=== PATIENT | male | born 1970 | race Caucasian/White ===

== ENCOUNTER → 2018-07-08 15:03 | Outpatient (CLI) | payer OTHER, SELFPAY ==
[2018-07-08 16:18] LABS: Add Manual Diff / Slide Review NO; Basophils Percent Auto 0.4 % (0-2); Eosinophils Percent Auto 1.3 % (2-4); Hematocrit 44.1 % (41-53); Hemoglobin 15.1 g/dL (13.5-17.5); Lymphocytes Percent Auto 24.5 % (25-40); Mean Corpuscular HGB Conc 34.3 % (30-36); Mean Corpuscular Hemoglobin 27.5 PG (26-34); Mean Corpuscular Volume 80.2 fL (80-100); Monocytes Percent Auto 6.5 % (3-14); Neutrophils Absolute Auto 4900 /uL (3000-5900); Neutrophils Percent Auto 67.3 % (50-75); Platelet Count 207 X10^3/uL (150-400); Red Cell Distribution Width 13.5 % (11.6-14.8); White Blood Cell Count 7.3 X10^3/uL (4.5-11.0)
[2018-07-08 16:35] LABS: Alanine Aminotransferase 32 IU/L (21-72); Albumin 4.5 g/dL (3.5-5.0); Albumin Globulin Ratio 1.4 (1.0-2.8); Alkaline Phosphatase 68 U/L (38-126); Aspartate Aminotransferase 19 IU/L (17-59); Bilirubin Total 0.6 mg/dL (0.2-1.3); Blood Urea Nitrogen 16 mg/dL (9-20); Calcium 9.2 mg/dL (8.4-10.2); Carbon Dioxide 23 mmol/L (22-32); Chloride 106 mmol/L (98-107); Cholesterol 221 mg/dL (140-199); Estimated Glomerular Filt Rate > 60.0 mL/min (>60); Globulin 3.2 g/dL (1.7-4.1); Glucose 102 mg/dL (70-100); HDL Cholesterol 35 mg/dL (40-60); HEMOLYSIS < 15 (0-50); LDL Cholesterol Calculated 135 mg/dL (<100); Sodium 143 mmol/L (137-145); Total Protein 7.7 g/dL (6.3-8.2); Triglycerides 256 mg/dL (35-150)
[2018-07-08 16:51] LABS: Free T4, Direct Thyroxine 1.07 ng/dL (0.78-2.19)
[2018-07-08 17:05] LABS: Thyroid Stimulating Hormone 2.01 uIU/mL (0.47-4.68)
== END ==
PROVIDERS: Family Provider Internal Medicine; PCP Internal Medicine; Visit Provider Internal Medicine
DX: E78.2 Mixed hyperlipidemia (principal); I10 Essential (primary) hypertension
CPT/HCPCS: 36415; 80053; 80061; 84439; 84443; 85025

== ENCOUNTER 2019-10-07 22:58 | Emergency (ER) | payer OTHER, SELFPAY ==
[2019-10-07 23:06] VITALS: BP 198/106; PULSE 75; RESP 19; TEMP 36.6; O2SAT 97; BMI 38.2
[2019-10-07] MEDS: SODIUM CHLORIDE 0.9% 1,000 ML 1000 ML IV (23:39)
[2019-10-07] MEDS: KETOROLAC 60 MG/2 ML VIAL 15 MG IV (23:40)
[2019-10-07 23:51] LABS: Add Manual Diff / Slide Review NO; Basophils Absolute Auto 0 /uL (0-100); Basophils Percent Auto 0.5 % (0-2); Eosinophils Absolute Auto 200 /uL (0-450); Eosinophils Percent Auto 2.3 % (2-4); Hematocrit 36.4 % (41-53); Hemoglobin 12.6 g/dL (13.5-17.5); Lymphocytes Absolute Auto 1100 /uL (1100-4500); Lymphocytes Percent Auto 11.8 % (25-40); Mean Corpuscular HGB Conc 34.5 % (30-36); Mean Corpuscular Hemoglobin 27.6 PG (26-34); Monocytes Absolute Auto 800 /uL (0-900); Monocytes Percent Auto 8.6 % (3-14); Neutrophils Absolute Auto 7500 /uL (1500-7000); Neutrophils Percent Auto 76.8 % (50-75); Platelet Count 212 X10^3/uL (150-400); Red Blood Cell Count 4.56 X10^6/uL (4.5-5.9); Red Cell Distribution Width 13.2 % (11.6-14.8); White Blood Cell Count 9.7 X10^3/uL (4.5-11.0)
[2019-10-07 23:58] LABS: BUN Creatinine Ratio 10.8 (6-22); Blood Urea Nitrogen 14 mg/dL (9-20); Calcium 8.5 mg/dL (8.4-10.2); Carbon Dioxide 24 mmol/L (22-32); Chloride 104 mmol/L (98-107); Estimated Glomerular Filt Rate 59.2 mL/min (>60); Glucose 163 mg/dL (70-100); HEMOLYSIS < 15 (0-50); Potassium 3.2 mmol/L (3.4-5.1); Sodium 137 mmol/L (137-145)
--- NOTE | 2019-10-08 00:35 | ED.BACK ---
HPI - Back Pain/Injury General Chief Complaint: Back Pain/Injury Stated Complaint: Possible Kidney Stones Time Seen by Provider: 10/07/19 23:00 Source: patient Mode of arrival: Ambulatory Limitations: no limitations History of Present Illness HPI Narrative: 48-year-old male nonsmoker with history of hypertension and kidney stones presents with a chief complaint of a sudden onset and severe right flank pain in the absence of injury. He states that starts in his right back and has radiated around into his right groin. He denies any provocation or palliation. He denies dysuria, frequency or urgency. He states it feels quite similar to prior episode of kidney stones. He denies any fever or chills. MD Complaint: back pain Onset (ago): hour(s) Duration: intermittent Similar Symptoms Previously: Yes Location: right flank Severity: moderate Quality: sharp Radiation: groin Relieving factors: none Exacerbating factors: none Associated symptoms: denies other symptoms Related Data Previous Rx's Medication Instructions Recorded dextroamphetamine 15 mg tablet 15 mg PO BID #60 tab 04/01/19 lisinopril 20 mg tablet 20 mg PO DAILY #90 tab 04/01/19 hydrocodone-acetaminophen 1 tab PO Q4-6H PRN #10 tab 10/08/19 ketorolac 10 mg PO Q6H PRN #14 tab 10/08/19 tamsulosin [Flomax] 0.4 mg PO DAILY #10 cap 10/08/19 Allergies Allergy/AdvReac Type Severity Reaction Status Date / Time No Known Drug Allergies Allergy Verified 05/30/19 11:49 Review of Systems Constitutional Constitutional: Denies chills, Denies fatigue, Denies fever(s), Denies frequent falls, Denies lethargy and Denies weakness Eyes Eyes: Denies change in vision, Denies eye discharge, Denies irritation and Denies loss of vision ENT Ears, Nose, Mouth, and Throat: Denies change in voice, Denies dizziness, Denies neck pain, Denies sore throat and Denies throat swelling Cardiovascular Cardiovascular: Denies chest pain, Denies irregular heart rhythm, Denies lightheadedness, Denies palpitations, Denies dyspnea, Denies dyspnea on exertion and Denies orthopnea Respiratory Respiratory: Denies cough, Denies dyspnea, Denies dyspnea on exertion and Denies wheezing Gastrointestinal Gastrointestinal: Denies abdominal pain, Denies change in bowel habits, Denies diarrhea, Denies nausea and Denies vomiting Genitourinary Genitourinary: Denies hematuria, Reports flank pain, Denies urinary incontinence and Denies urinary urgency Musculoskeletal Musculoskeletal: Denies back pain, Denies muscle weakness, Denies neck pain, Denies numbness and Denies tingling Integumentary/Breasts Skin/Breast: Denies pruritus, Denies erythema, Denies rash and Denies wounds Neurologic Neurologic: Denies behavioral changes, Denies confusion, Denies dizziness, Denies frequent falls, Denies loss of vision, Denies numbness, Denies tingling and Denies weakness Psychiatric Psychiatric: Denies anxiety, Denies behavioral changes, Denies confusion, Denies depression, Denies homicidal ideation and Denies suicidal ideation Endocrine Endocrine: Denies fatigue, Denies flushing and Denies palpitations Hematologic/Lymphatic Hematologic/Lymphatic: Denies easy bruising Allergic/Immunologic Allergic/Immunologic: Denies urticaria, Denies throat swelling and Denies wheezing Patient History Medical History Attention deficit disorder of adult 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 Obese patient, obviously uncomfortable in laying on his side HEAD: Atraumatic. Normocephalic. EYES: Pupils equal round and reactive. Extraocular motions intact. No scleral icterus. No injection or drainage. ENT: Nose without bleeding, purulent drainage. Throat without erythema, tonsillar hypertrophy or exudate. Airway patent. NECK: Trachea midline. Non tender CARDIOVASCULAR: Regular rate and rhythm without murmurs, gallops, or rubs. RESPIRATORY: Clear to auscultation. Breath sounds equal bilaterally. No wheezes, rales, or rhonchi. GASTROINTESTINAL: Abdomen soft, non-tender, nondistended. EXTREMITIES: No edema or joint tenderness. BACK: Nontender without deformity or crepitance. No flank tenderness. NEURO: AOx3. SKIN: No rash or erythema of visible areas Initial Vital Signs Initial Vital Signs: Vital Signs Temperature 97.8 F 10/07/19 23:06 Pulse Rate 75 10/07/19 23:06 Respiratory Rate 19 10/07/19 23:06 Blood Pressure 198/106 H 10/07/19 23:06 Pulse Oximetry 97 10/07/19 23:06 Course Orders Ordered: ED Orders 10/07/19 23:32 Basic Metabolic Panel Stat Complete Blood Count AUTO DIFF Stat Discontinued Medications Hydrocodone Bitart/Acetaminophen (Vicodin 5/325 Prepack) 1 bottle [facility] SEEINSTR ONE Stop: 10/08/19 00:33 Last Admin: 10/08/19 00:44 Dose: 1 bottle Documented by: DEBI Sodium Chloride (Normal Saline 0.9%) 1,000 mls @ 1,000 mls/hr IV BOLUS ONE Stop: 10/08/19 00:14 Last Infusion: 10/08/19 00:40 Dose: 1,000 mls/hr Documented by: Admin: 10/07/19 23:39 Dose: 1,000 mls/hr Documented by: ZAK Ketorolac Tromethamine (Toradol) 15 mg IV NOW ONE Stop: 10/07/19 23:16 Last Admin: 10/07/19 23:40 Dose: 15 mg Documented by: ZAK Ondansetron HCl (Zofran) 4 mg IV Q4HR PRN PRN Reason: Nausea And Vomiting Ondansetron HCl (Zofran Odt Prepack) 1 bottle [facility] SEEINSTR ONE Stop: 10/08/19 00:33 Last Admin: 10/08/19 00:44 Dose: 1 bottle Documented by: DEBI Vital Signs Vital signs: Vital Signs - 8 hr 10/07/19 23:06 10/08/19 00:40 Temperature 97.8 F Pulse Rate 75 69 Respiratory Rate 19 17 Blood Pressure 198/106 H 176/91 H Pulse Oximetry 97 97 MDM - Back Pain/Injury Lab Data Result diagrams: 10/07/19 23:32 10/07/19 23:32 Labs: Lab Results 10/07/19 10/07/19 Range/Units 23:32 23:32 WBC 9.7 (4.5-11.0) X10^3/uL RBC 4.56 (4.5-5.9) X10^6/uL Hgb 12.6 L (13.5-17.5) g/dL Hct 36.4 L (41-53) % MCV 80.0 (80-100) fL MCH 27.6 (26-34) PG MCHC 34.5 (30-36) % RDW 13.2 (11.6-14.8) % Plt Count 212 (150-400) X10^3/uL Neut % (Auto) 76.8 H (50-75) % Lymph % (Auto) 11.8 L (25-40) % [place] % (Auto) 8.6 (3-14) % Eos % (Auto) 2.3 (2-4) % Baso % (Auto) 0.5 (0-2) % Neut # (Auto) 7500 H (5435-4536) /uL Lymph # (Auto) 1100 (8558-3634) /uL [place] # (Auto) 800 (0-900) /uL Eos # (Auto) 200 (0-450) /uL Baso # (Auto) 0 (0-100) /uL Sodium 137 (137-145) mmol/L Potassium 3.2 L (3.4-5.1) mmol/L Chloride 104 (98-107) mmol/L Carbon Dioxide 24 (22-32) mmol/L BUN 14 (9-20) mg/dL Creatinine 1.30 H (0.66-1.25) mg/dL Estimated GFR 59.2 L (>60) mL/min BUN/Creatinine Ratio 10.8 (6-22) Glucose 163 H (70-100) mg/dL Calcium 8.5 (8.4-10.2) mg/dL Urine Dip Bedside Urine Glucose Negative Bedside Urine Bilirubin - Negative Bedside Urine Ketone - Negative Urine Specific [place] 1.015 Bedside Urine Occult Blood - Negative Bedside Urine pH 6.5 Bedside Urine Protein - Negative Bedside Urine Urobilinogen - Negative Bedside Urine Nitrite - Negative Bedside Urine Leukocytes - Negative Esterase MDM Narrative Medical decision making narrative: 48-year-old male shows tremendous improvement in symptoms after above-stated therapies. He has sudden onset flank pain with radiation into his groin without provocation or palliation. He states this is similar to prior kidney stones. His labs are very reassuring. We discussed the utility of additional imaging and agree to hold off for now. He has been given return precautions and understands discharge instructions. He has had questions answered to his apparent satisfaction Discharge Plan Departure Patient Disposition: Home Clinical Impression: Acute right flank pain Discharge Date/Time: 10/08/19 00:40 Instructions: DI for Kidney Stones Activity Restrictions/Additional Instructions: *You have been diagnosed with [acute right flank pain, likely kidney stone] *What to do: *Take medications as directed *Follow up with your primary care provider in 2-3 days, call for an appointment. Let them know you were seen in the Emergency Department and that we ask that you be seen in follow up *Return to ER if you should have any new, worsening or concerning symptoms Prescriptions: New hydrocodone-acetaminophen 5-325 mg tablet 1 tab PO Q4-6H PRN (Reason: pain) Qty: 10 RF: 0 ketorolac 10 mg tablet 10 mg PO Q6H PRN (Reason: pain) Qty: 14 RF: 0 tamsulosin [Flomax] 0.4 mg capsule 0.4 mg PO DAILY Qty: 10 RF: 0 No Action lisinopril 20 mg tablet 20 mg PO DAILY Qty: 90 RF: 3 dextroamphetamine 15 mg tablet 15 mg PO BID Qty: 60 RF: 0 Referrals: Rich Guaman MD [Primary Care Provider] -
[2019-10-08 00:40] VITALS: BP 176/91; PULSE 69; RESP 17; O2SAT 97
[2019-10-08] MEDS: ONDANSETRON 4 MG ODT PREPACK 1 BOTTLE MISC (00:44)
[2019-10-08] MEDS: HYDROCODONE/ACET 5/325 PREPACK 1 BOTTLE MISC (00:44)
== END 2019-10-08 00:40 | disposition home or self-care (01) ==
PROVIDERS: Emergency Provider Emergency Medicine; Family Provider Internal Medicine; PCP Internal Medicine
DX: R10.9 Unspecified abdominal pain (principal); Z87.442 Personal history of urinary calculi
CPT/HCPCS: 36415; 80048; 81003; 85025; 96361; 96374; 99284; J1885

== ENCOUNTER → 2019-11-21 13:21 | Outpatient (CLI) | payer OTHER, SELFPAY ==
[2019-11-21 16:47] LABS: Influenza A - CEPHEID Flu A NEGATIVE (NEGATIVE); Influenza B - CEPHEID Flu B NEGATIVE (NEGATIVE)
[2019-11-23 05:38] LABS: COVID19 Sendout Not Detected (Not Detected)
== END ==
PROVIDERS: Family Provider Internal Medicine; PCP Internal Medicine; Visit Provider Family Medicine
DX: R05 Cough (principal)
CPT/HCPCS: 87502; 87635

== ENCOUNTER → 2020-07-05 14:19 | Outpatient (CLI) | payer OTHER, SELFPAY ==
[2020-07-05 15:39] LABS: COVID19 -Nasal RAPID Negative (Negative)
== END ==
PROVIDERS: Family Provider Internal Medicine; PCP Internal Medicine; Visit Provider Physician Assistant
DX: Z11.59 Encounter for screening for other viral diseases (principal)
CPT/HCPCS: 87635

== ENCOUNTER 2020-07-12 11:25 | Emergency (ER) | payer OTHER, SELFPAY ==
[2020-07-12] VITALS (11 sets, daily range): BP systolic 158; BP diastolic 98; PULSE 66–88; RESP 20–24; TEMP 35.8; O2SAT 92–97; BMI 38.9
--- NOTE | 2020-07-12 11:46 | DI.RAD.S_ITS ---
PROCEDURE: XR CHEST 2V INDICATIONS: COVID sx, short of breath, R crackles TECHNIQUE: 2 views of the chest were acquired. COMPARISON: None. FINDINGS: Surgical changes and devices: None. Lungs and pleura: Low lung volumes are noted. This causes a crowded appearance to the lung markings and limits evaluation. Perihilar infiltrates are seen. No pneumothorax or pleural effusions are seen. Mediastinum: Mediastinal contours are normal. Heart size is at the upper limits of normal. Bones and chest wall: No suspicious bony abnormalities. Soft tissues appear unremarkable. IMPRESSION: Low lung volumes with perihilar infiltrates. Pulmonary edema is suspected. Dictated by: Alverto Pascal M.D. on 07/12/2020 at 11:16 Approved by: Alverto Pascal M.D. on 07/12/2020 at 11:16
[2020-07-12 12:07] LABS: COVID19 -Nasal RAPID POSITIVE (Negative)
--- NOTE | 2020-07-12 12:21 | ED.SOB ---
HPI - SOB/Dyspnea General Chief Complaint: Shortness of Breath/Dyspnea Stated Complaint: difficulty breathing, thinks he has covid Time Seen by Provider: 07/12/20 12:07 Source: patient Mode of arrival: Ambulatory Limitations: no limitations History of Present Illness HPI Narrative: This is a 49-year-old male who comes emergency department with complaint of shortness of breath. He states that he has had 10 days of symptoms. His tested positive for coronavirus several days ago. Patient had some fevers initially none recently. He denies any chest pain or pressure. No lightheadedness or passing out. Had some nausea intermittently. No vomiting he has had some loose stools but no constipation. No swelling in his extremities. He does have a history of hypertension he is not currently taking his medications. He also has a history of sleep apnea. Denies any tobacco, no alcohol or illicit. No known drug allergies. Him, his and 3 children all live home together. Should have have been asymptomatic but his has had symptoms. Patient came in today because he has had increasing shortness of breath. Does not feel like he has been tight or wheezy but his does have an inhaler that she has been letting him use and he does find helpful. Related Data Previous Rx's Medication Instructions Recorded lisinopril 20 mg tablet 20 mg PO DAILY #90 tab 04/01/19 dextroamphetamine 15 mg tablet 15 mg PO BID #60 tab 10/20/19 albuterol sulfate 4 inh INHALATION Q4-6H PRN #18 g 07/12/20 aspirin 325 mg PO DAILY #30 tab 07/12/20 Allergies Allergy/AdvReac Type Severity Reaction Status Date / Time No Known Drug Allergies Allergy Verified 10/20/19 09:39 Review of Systems Review of Systems ROS Unobtainable: All systems reviewed & are unremarkable except as noted in HPI and below Patient History Medical History (Updated 07/12/20 @ 12:55 by Willow West DO) Attention deficit disorder of adult with hyperactivity (05/31/15) Essential hypertension (05/31/15) Ocular migraine (04/08/15) Surgical History History of vasectomy (11/27/13) Social History Smoking Status: Never smoker Smoking Status: Never smoker alcohol intake frequency: a few times a week Substance Use Type: does not use Exam Narrative Exam Narrative: GENERAL: Alert and oriented x three, well-nourished male in mild distress HEENT: Head normocephalic, atraumatic, EOMI, pupils reactive, face symmetric, moist mucous membranes NECK: Supple, full range of motion CARDIOVASCULAR: Regular rate and rhythm without murmurs, rubs or gallops. RESPIRATORY: Breath sounds equal bilaterally, no wheezes rales or rhonchi. No tachypnea accessory muscle use. ABDOMEN: Soft, nontender. Normoactive bowel sounds all 4 quadrants. No guarding or rebound, rigidity, no mass : No CVA tenderness EXTREMITIES: Normal range of motion, no clubbing or edema. Neurovascularly intact NEUROLOGICAL: Cranial nerves II through XII grossly intact. Moving all extremities SKIN: Warm, dry, no petechiae, no rashes or lesions. Initial Vital Signs Initial Vital Signs: Vital Signs Pulse Rate 80 07/12/20 11:39 Pulse Oximetry 92 07/12/20 11:39 Course Orders Ordered: ED Orders 07/12/20 11:40 COVID19 Stat 07/12/20 11:46 Chest [XR chest 2V] Stat 07/12/20 12:56 Complete Blood Count AUTO DIFF Stat Comprehensive Metabolic Panel Stat D Dimer Stat Ferritin Stat Lactate (Lactic Acid) Stat Lactate Dehydrogenase Stat Troponin & CK Cardiac Panel Stat 07/12/20 14:23 CT angio chest PE protocol Stat Vital Signs Vital signs: Vital Signs - 8 hr 07/12/20 11:39 07/12/20 11:44 07/12/20 11:45 Temperature 96.5 F L Pulse Rate 80 77 78 Respiratory Rate 24 Blood Pressure 158/98 H Pulse Oximetry 92 93 92 07/12/20 12:00 07/12/20 12:15 07/12/20 12:30 Temperature Pulse Rate 76 71 70 Respiratory Rate Blood Pressure Pulse Oximetry 95 94 94 07/12/20 12:47 07/12/20 13:00 07/12/20 13:30 Temperature Pulse Rate 71 71 69 Respiratory Rate Blood Pressure Pulse Oximetry 95 94 95 07/12/20 14:00 07/12/20 15:48 Temperature Pulse Rate 66 88 Respiratory Rate 20 Blood Pressure Pulse Oximetry 96 97 MDM - SOB/Dyspnea Lab Data Attestation: I reviewed the patient's lab results. Result diagrams: 07/12/20 12:56 07/12/20 12:56 Labs: Lab Results 07/12/20 07/12/20 07/12/20 Range/Units 11:40 12:56 12:56 WBC 3.8 L (4.5-11.0) X10^3/uL RBC 5.00 (4.5-5.9) X10^6/uL Hgb 14.0 (13.5-17.5) g/dL Hct 40.3 L (41-53) % MCV 80.5 (80-100) fL MCH 28.0 (26-34) PG MCHC 34.8 (30-36) % RDW 13.3 (11.6-14.8) % Plt Count 190 (150-400) X10^3/uL Neut % (Auto) 65.0 (50-75) % Lymph % (Auto) 23.3 L (25-40) % [place] % (Auto) 10.2 (3-14) % Eos % (Auto) 1.1 L (2-4) % Baso % (Auto) 0.4 (0-2) % Neut # (Auto) 2500 (2871-3976) /uL Lymph # (Auto) 900 L (2971-3100) /uL [place] # (Auto) 400 (0-900) /uL Eos # (Auto) 0 (0-450) /uL Baso # (Auto) 0 (0-100) /uL D-Dimer 275 H (<230) ng/mL Sodium (137-145) mmol/L Potassium (3.4-5.1) mmol/L Chloride (98-107) mmol/L Carbon Dioxide (22-32) mmol/L BUN (9-20) mg/dL Creatinine (0.66-1.25) mg/dL Estimated GFR (>60) mL/min BUN/Creatinine Ratio (6-22) Glucose (70-100) mg/dL Lactate (0.7-2.1) mmol/L Calcium (8.4-10.2) mg/dL Ferritin (18-464) ng/mL Total Bilirubin (0.2-1.3) mg/dL AST (17-59) IU/L ALT (<50) IU/L Alkaline Phosphatase (38-126) U/L Lactate Dehydrogenase (313-618) U/L Total Creatine Kinase (55-170) U/L CK-MB (CK-2) CK-MB (CK-2) Rel Index Troponin I (0.01-0.034) ng/mL Total Protein (6.3-8.2) g/dL Albumin (3.5-5.0) g/dL Globulin (1.7-4.1) g/dL Albumin/Globulin Ratio (1.0-2.8) COVID-19 PCR Positive H (Negative) 07/12/20 07/12/20 Range/Units 12:56 12:56 WBC (4.5-11.0) X10^3/uL RBC (4.5-5.9) X10^6/uL Hgb (13.5-17.5) g/dL Hct (41-53) % MCV (80-100) fL MCH (26-34) PG MCHC (30-36) % RDW (11.6-14.8) % Plt Count (150-400) X10^3/uL Neut % (Auto) (50-75) % Lymph % (Auto) (25-40) % [place] % (Auto) (3-14) % Eos % (Auto) (2-4) % Baso % (Auto) (0-2) % Neut # (Auto) (5061-8564) /uL Lymph # (Auto) (7003-3215) /uL [place] # (Auto) (0-900) /uL Eos # (Auto) (0-450) /uL Baso # (Auto) (0-100) /uL D-Dimer (<230) ng/mL Sodium 133 L (137-145) mmol/L Potassium 3.6 (3.4-5.1) mmol/L Chloride 99 (98-107) mmol/L Carbon Dioxide 26 (22-32) mmol/L BUN 10 (9-20) mg/dL Creatinine 0.67 (0.66-1.25) mg/dL Estimated GFR > 60.0 (>60) mL/min BUN/Creatinine Ratio 14.9 (6-22) Glucose 257 H (70-100) mg/dL Lactate 1.2 (0.7-2.1) mmol/L Calcium 8.5 (8.4-10.2) mg/dL Ferritin 732 H (18-464) ng/mL Total Bilirubin 0.6 (0.2-1.3) mg/dL AST 53 (17-59) IU/L ALT 50 H (<50) IU/L Alkaline Phosphatase 122 (38-126) U/L Lactate Dehydrogenase 672 H (313-618) U/L Total Creatine Kinase 41 L (55-170) U/L CK-MB (CK-2) TNP CK-MB (CK-2) Rel Index TNP Troponin I < 0.012 (0.01-0.034) ng/mL Total Protein 7.6 (6.3-8.2) g/dL Albumin 3.8 (3.5-5.0) g/dL Globulin 3.8 (1.7-4.1) g/dL Albumin/Globulin Ratio 1.0 (1.0-2.8) COVID-19 PCR (Negative) Imaging Data Chest x-ray: Radiologist's Impression: [address] [id number] ReportSigned Patient: Kenton Hammond R#: [id number]: 1970Acct:[id number]/Sex: 49 / MDate of Service: 07/12/20Loc: EDAccession Number: [id number] Procedure: XR chest 2V Ordering Provider: Willow West D.O. PROCEDURE: XR CHEST 2V INDICATIONS: COVID sx, short of breath, R crackles TECHNIQUE: 2 views of the chest were acquired. COMPARISON: None. FINDINGS: Surgical changes and devices: None. Lungs and pleura: Low lung volumes are noted. This causes a crowded appearance to the lung markings and limits evaluation. Perihilar infiltrates are seen. No pneumothorax or pleural effusions are seen. Mediastinum: Mediastinal contours are normal. Heart size is at the upper limits of normal. Bones and chest wall: No suspicious bony abnormalities. Soft tissues appear unremarkable. IMPRESSION: Low lung volumes with perihilar infiltrates. Pulmonary edema is suspected. Dictated by: Alverto Pascal M.D. on 07/12/2020 at 11:16 Approved by: Alverto Pascal M.D. on 07/12/2020 at 11:16 CT scan - chest: Radiologist's Impression: [address] [id number] Scan ReportSigned Patient: Kenton Hammond JMR#: [id number]: 1970Acct:[id number]/Sex: 49 / MDate of Service: 07/12/20Loc: EDAccession Number: [id number] Procedure: CT angio chest PE protocol Ordering Provider: Willow West D.O. PROCEDURE: CT ANGIO CHEST PE PROTOCOL INDICATIONS: covid+, short of breath, elevated dimer TECHNIQUE: After the administration of intravenous contrast, 2 mm thick sections acquired from the pulmonary apices to the posterior costophrenic angles. 3-dimensional maximum intensity projection (MIP) coronal and sagittal reformats were then acquired through the thorax. For radiation dose reduction, the following was used: automated exposure control, adjustment of mA and/or kV according to patient size. COMPARISON: [facility], CR, XR CHEST 2V, 07/12/2020, 11:52. FINDINGS: Image quality: Excellent. Pulmonary arteries: Pulmonary arteries are normal in size, and demonstrate no intraluminal filling defects to suggest central pulmonary embolism. Lungs and pleura: Bilateral interstitial infiltrates are seen, which are more prominent at the lung bases than the lung apices. No pleural effusions or pneumothorax. Central and peripheral airways are patent. Mediastinum: Heart size is normal, without pericardial effusion. A few mildly enlarged mediastinal lymph nodes are seen, including a right paraesophageal lymph node on series 4, image 79 measuring 11 x 15 mm. Thoracic aorta is normal in caliber and enhancement. Esophagus is normal in caliber, without hiatal hernia. Bones and chest wall: No suspicious bony lesions. Ribs and thoracic spine appear intact throughout. Thyroid gland demonstrates no significant abnormality . No axillary or supraclavicular adenopathy. Abdomen: Diffuse fatty liver infiltration is noted. Visualized upper abdominal solid organs appear normal in the early arterial phase of enhancement. IMPRESSION: Bilateral interstitial infiltrates are seen, which are consistent with the given clinical history of COVID pneumonia. Mildly enlarged mediastinal lymph nodes are seen, which are likely reactive. Negative for pulmonary embolism. Incidental note is made of: Fatty liver infiltration Dictated by: Alverto Pascal M.D. on 07/12/2020 at 13:49 Approved by: Alverto Pascal M.D. on 07/12/2020 at 13:53 [facility] Narrative Medical decision making narrative: 49-year-old male comes to the emergency department with complaint of shortness of breath. Patient has positive COVID. Initial chest x-ray does not show major changes. He does dip down to 90-93% O2 saturation, white count is 3.8 with a low lymphocyte count, sodium is 133, glucose is 257, ferritin 732, with an LDH of 672, troponins negative in D-dimer slightly elevated at 271. CT angiography was ordered as these patients are more likely to develop blood clots and is negative with COVID changes. Patient has been prescribed home O2 with RT and he has a pulse oximeter at home. Recommended asa 324mg daily and can continue albuterol and OTC medications if he finds these helpful. CT angiography shows COVID changes but no pulmonary emboli. Discussed with patient plan to recommend aspirin daily, he continue albuterol OTC medications. RT was able to get him set up with home O2. Patient does have a home pulse oximeter which he can use. Discussed return precautions. Patient has maintained oxygen level above 95% the majority of the time in the department. Discharge Plan Departure Patient Disposition: Home Clinical Impression: COVID-19 virus infection, Dyspnea Instructions: Coronavirus Disease 2019 Activity Restrictions/Additional Instructions: Follow up in the next week if you are not having any improvement or if you are feeling worse. Use home O2 as needed for supplemental oxygen, use if oxygen saturation is less than 94%. Continue to monitor your oxygen with your home pulse oximeter. If your oxygen is consistently below 89% return for re-evaluation. I would recommend taking an aspirin daily. You can continue other [id number] medications as prescribed. Prescription sent to [facility]. If you find albuterol helpful you may use 4-6 puffs every 6 hours as needed for shortness of breath or wheezing. Return for worsening symptoms increasing any dyspnea or shortness of breath, chest pain, lightheadedness or passing out, persistent vomiting, persistently low oxygen levels, altered mental status or other new or concerning symptoms. Prescriptions: New albuterol sulfate 90 mcg/actuation HFA aerosol inhaler 4 inh inhalation Q4-6H PRN (Reason: shortness of breath or wheezing) Qty: 18 RF: 0 aspirin 325 mg tablet 325 mg PO DAILY Qty: 30 RF: 0 No Action lisinopril 20 mg tablet 20 mg PO DAILY Qty: 90 RF: 3 dextroamphetamine 15 mg tablet 15 mg PO BID Qty: 60 RF: 0 Referrals: Rich Guaman MD [Primary Care Provider] -
[2020-07-12 13:08] LABS: Add Manual Diff / Slide Review NO; Basophils Absolute Auto 0 /uL (0-100); Basophils Percent Auto 0.4 % (0-2); Eosinophils Absolute Auto 0 /uL (0-450); Eosinophils Percent Auto 1.1 % (2-4); Hematocrit 40.3 % (41-53); Lymphocytes Absolute Auto 900 /uL (1100-4500); Lymphocytes Percent Auto 23.3 % (25-40); Mean Corpuscular HGB Conc 34.8 % (30-36); Mean Corpuscular Volume 80.5 fL (80-100); Monocytes Absolute Auto 400 /uL (0-900); Monocytes Percent Auto 10.2 % (3-14); Neutrophils Absolute Auto 2500 /uL (1500-7000); Platelet Count 190 X10^3/uL (150-400); Red Cell Distribution Width 13.3 % (11.6-14.8); White Blood Cell Count 3.8 X10^3/uL (4.5-11.0)
[2020-07-12 13:19] LABS: D Dimer 275 ng/mL (<230)
[2020-07-12 13:21] LABS: Alanine Aminotransferase 50 IU/L (<50); Albumin 3.8 g/dL (3.5-5.0); Alkaline Phosphatase 122 U/L (38-126); Aspartate Aminotransferase 53 IU/L (17-59); BUN Creatinine Ratio 14.9 (6-22); Bilirubin Total 0.6 mg/dL (0.2-1.3); Blood Urea Nitrogen 10 mg/dL (9-20); Calcium 8.5 mg/dL (8.4-10.2); Carbon Dioxide 26 mmol/L (22-32); Chloride 99 mmol/L (98-107); Creatine Kinase 41 U/L (55-170); Estimated Glomerular Filt Rate > 60.0 mL/min (>60); Globulin 3.8 g/dL (1.7-4.1); Glucose 257 mg/dL (70-100); HEMOLYSIS < 15 (0-50); Lactate Dehydrogenase 672 U/L (313-618); Potassium 3.6 mmol/L (3.4-5.1); Sodium 133 mmol/L (137-145); Total Protein 7.6 g/dL (6.3-8.2)
[2020-07-12 13:23] LABS: Lactate (Lactic Acid) 1.2 mmol/L (0.7-2.1)
[2020-07-12 13:33] LABS: Troponin I < 0.012 ng/mL (0.01-0.034)
[2020-07-12 13:56] LABS: Ferritin 732 ng/mL (18-464)
--- NOTE | 2020-07-12 14:23 | DI.CT.S_ITS ---
PROCEDURE: CT ANGIO CHEST PE PROTOCOL INDICATIONS: covid+, short of breath, elevated dimer TECHNIQUE: After the administration of intravenous contrast, 2 mm thick sections acquired from the pulmonary apices to the posterior costophrenic angles. 3-dimensional maximum intensity projection (MIP) coronal and sagittal reformats were then acquired through the thorax. For radiation dose reduction, the following was used: automated exposure control, adjustment of mA and/or kV according to patient size. COMPARISON: [facility], CR, XR CHEST 2V, 07/12/2020, 11:52. FINDINGS: Image quality: Excellent. Pulmonary arteries: Pulmonary arteries are normal in size, and demonstrate no intraluminal filling defects to suggest central pulmonary embolism. Lungs and pleura: Bilateral interstitial infiltrates are seen, which are more prominent at the lung bases than the lung apices. No pleural effusions or pneumothorax. Central and peripheral airways are patent. Mediastinum: Heart size is normal, without pericardial effusion. A few mildly enlarged mediastinal lymph nodes are seen, including a right paraesophageal lymph node on series 4, image 79 measuring 11 x 15 mm. Thoracic aorta is normal in caliber and enhancement. Esophagus is normal in caliber, without hiatal hernia. Bones and chest wall: No suspicious bony lesions. Ribs and thoracic spine appear intact throughout. Thyroid gland demonstrates no significant abnormality . No axillary or supraclavicular adenopathy. Abdomen: Diffuse fatty liver infiltration is noted. Visualized upper abdominal solid organs appear normal in the early arterial phase of enhancement. IMPRESSION: Bilateral interstitial infiltrates are seen, which are consistent with the given clinical history of COVID pneumonia. Mildly enlarged mediastinal lymph nodes are seen, which are likely reactive. Negative for pulmonary embolism. Incidental note is made of: Fatty liver infiltration Dictated by: Alverto Pascal M.D. on 07/12/2020 at 13:49 Approved by: Alverto Pascal M.D. on 07/12/2020 at 13:53
--- NOTE | 2020-07-12 14:43 | PC.NURSE ---
pt taken to and from CT chest. Pt tolerating 1L O2 NC well. Pt appears well. no SOB when lying still, RT in to consult about [employer] home O2 and discussed changing home CPAP tubing for when pt is no longer COVID+
== END 2020-07-12 15:48 | disposition home or self-care (01) ==
PROVIDERS: Emergency Provider Emergency Medicine; Family Provider Internal Medicine; PCP Internal Medicine
DX: U07.1 COVID-19 (principal); R06.00 Dyspnea, unspecified; R79.89 Other specified abnormal findings of blood chemistry
CPT/HCPCS: 36415; 71046; 71275; 80053; 82550; 82728; 83605; 83615; 84484; 85025; 85379; 87635; 99284; Q9967

== ENCOUNTER → 2021-04-18 08:23 | Outpatient (CLI) | payer OTHER, MEDICAID, SELFPAY ==
[2021-04-18 08:59] LABS: Hemoglobin A1C% w Est Avg Glu 11.3 % (4.0-6.0)
[2021-04-18 09:05] LABS: Alanine Aminotransferase 35 IU/L (<50); Albumin Globulin Ratio 1.3 (1.0-2.8); Alkaline Phosphatase 94 U/L (38-126); Aspartate Aminotransferase 30 IU/L (17-59); BUN Creatinine Ratio 18.3 (6-22); Bilirubin Total 0.7 mg/dL (0.2-1.3); Blood Urea Nitrogen 13 mg/dL (9-20); Calcium 8.8 mg/dL (8.4-10.2); Carbon Dioxide 24 mmol/L (22-32); Chloride 105 mmol/L (98-107); Cholesterol 223 mg/dL (140-199); Estimated Glomerular Filt Rate > 60.0 mL/min (>60); Globulin 3.2 g/dL (1.7-4.1); Glucose 314 mg/dL (70-100); HDL Cholesterol 29 mg/dL (40-60); HEMOLYSIS < 15 (0-50); LDL Cholesterol Calculated 122 mg/dL (<100); Potassium 4.2 mmol/L (3.4-5.1); Sodium 136 mmol/L (137-145); Total Protein 7.2 g/dL (6.3-8.2); Triglycerides 361 mg/dL (35-150)
== END ==
PROVIDERS: Family Provider Internal Medicine; PCP Internal Medicine; Referring Provider Internal Medicine; Visit Provider Internal Medicine
DX: F90.9 Attention-deficit hyperactivity disorder, unspecified type (principal); I10 Essential (primary) hypertension; R63.1 Polydipsia; R73.9 Hyperglycemia, unspecified
CPT/HCPCS: 36415; 80053; 80061; 83036

== ENCOUNTER → 2021-06-01 11:52 | Outpatient (CLI) | payer OTHER, MEDICAID, SELFPAY ==
--- NOTE | 2021-06-02 16:56 | DIAB.INIT ---
Addendum entered by Alexa Rosales 06/02/21 17:12: Date of visit: 06/01/21 Original Note: Initial Diabetes Education Assessment Name: Kenton Hammond Date: 06/02/21 Time: 1230-130p Dx: Type II Diabetes c Hyperglycemia Provider: Rowena Kenton presents today newly dx T2Dm c hgA1c of 11.3%. FH of DM with father. 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 Reports he has ADHD. States he feels carbohydrates exacerbate this diagnosis. Reports reducing carb intake and focusing on meat and vegetables. Limited fruit in his diet. Has 1/2-1c of milk or juice in evening. Endorses excessive urination, tingling in feet, and dry mouth for about 6 months prior to diagnosis. 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 Endorses great improvement with Metformin, but notices that when he eats high sugar foods/drinks, the symptoms return. Reports -25# of intentional weight loss over 6 months attributed to walking during frisbee golf. Anthropometrics: Ht: 6'1 Wt: 272# reported (preferred wt: 250#) Physical Activity: Frisbee golf q othe rday for 45-120 min. Reports discomfort in tennis shoes during activity, as they rub the side of his foot. He is wondering how this may impact foot health with DM. Self-Monitoring Blood Glucose: None currently. Plans to picking supervisor meter this week. Pertinent Labs: HgA1c 11.3% Cholesterol: 223 H LDL: 122 H HDL: 29 L T H Diabetes Medications: Metformin 500 mg BID Past Medical History: (Last Updated 04/21/21 @ 14:02 by Rich Guaman MD) Attention deficit disorder of adult with hyperactivity (~2007) COVID-19 virus infection Essential hypertension (05/31/15) History of vasectomy (11/27/13) Ocular migraine (04/08/15) Uncontrolled type 2 diabetes mellitus with hyperglycemia (~03/2021) Intervention: This participant was very receptive. Provided appropriate educational handouts. Discussed the following topics: Completed intake assessment. Discussed barriers to care. Pathophysiology of type 2 diabetes HgA1c, its correlation to blood glucose numbers, and rationale for goal Importance of self-monitoring, how often, and when to check. Suggested checking at different times to evaluate meals Plate Method, impact of macronutrients on blood sugar, meal timing, carbohydrate counting, pairing macronutrients and spreading out carbohydrates for better blood glucose management Discussed complex vs simple CHO and impact of BG Reviewed foot health and impact of hyperglycemia. Discussed having well-fitted shoes with proper socks to avoid foot injury/infection. General recommended servings for carbohydrates at meals and snacks Role of physical activity and following provider guidelines for safety Created SMART goals for patient self-care and success. Goals: sales superintendent meter and check BG: FBG and/or 1-2 hour pc and bring next visit Avoid juice Choose shoes that do not rub feet Follow-up: SILVERIO MATHEWS follow-up in 2-3 weeks Alexa Rosales RDN, BISI Certified Diabetes Care and Policy Specialist P: [phone] Thank you for this referral
== END ==
PROVIDERS: Family Provider Internal Medicine; PCP Internal Medicine; Referring Provider Internal Medicine; Visit Provider Internal Medicine
DX: E11.65 Type 2 diabetes mellitus with hyperglycemia (principal); Z71.3 Dietary counseling and surveillance; Z79.84 Long term (current) use of oral hypoglycemic drugs
CPT/HCPCS: G0108

== ENCOUNTER → 2021-06-17 07:43 | Outpatient (CLI) | payer OTHER, MEDICAID, SELFPAY ==
[2021-06-17 09:01] LABS: Hemoglobin A1C% w Est Avg Glu 8.3 % (4.0-6.0)
[2021-06-17 09:33] LABS: Alanine Aminotransferase 23 IU/L (<50); Albumin 4.1 g/dL (3.5-5.0); Albumin Globulin Ratio 1.3 (1.0-2.8); Alkaline Phosphatase 72 U/L (38-126); Aspartate Aminotransferase 19 IU/L (17-59); BUN Creatinine Ratio 15.7 (6-22); Bilirubin Total 0.6 mg/dL (0.2-1.3); Blood Urea Nitrogen 14 mg/dL (9-20); Calcium 9.3 mg/dL (8.4-10.2); Carbon Dioxide 25 mmol/L (22-32); Chloride 104 mmol/L (98-107); Estimated Glomerular Filt Rate > 60.0 mL/min (>60); Globulin 3.1 g/dL (1.7-4.1); Glucose 183 mg/dL (70-100); HEMOLYSIS < 15 (0-50); Potassium 4.6 mmol/L (3.4-5.1); Sodium 140 mmol/L (137-145); Total Protein 7.2 g/dL (6.3-8.2)
== END ==
PROVIDERS: Family Provider Internal Medicine; PCP Internal Medicine; Referring Provider Internal Medicine; Visit Provider Internal Medicine
DX: E11.65 Type 2 diabetes mellitus with hyperglycemia (principal); I10 Essential (primary) hypertension
CPT/HCPCS: 36415; 80053; 83036

== ENCOUNTER → 2021-06-22 11:53 | Outpatient (CLI) | payer OTHER, MEDICAID, SELFPAY ==
--- NOTE | 2021-06-22 17:30 | DIAB.FU ---
Follow-up Diabetes Education Assessment Name: Kenton Hammond Date: 06/22/21 Time: 12-1250p Dx: Type II Diabetes Provider: Rowena Cartwright Learning Style: Hands-on/doing Kenton presents for DM ed follow-up. Has increased physical activity and eating lower carb diet (though still room for improvement). BG continue above target, though last HgA1c has improved from 11.3% to 8.3%. Reports a weight loss of 8-10# (reported weight 265#). May benefit from increase in Metformin to 1000 mg BID. States he will discuss with provider. This RD/CDCES will contact provider office to discuss as well. After discussing with provider MA, pt often misses visits. Will plan to reinforce importance of regular PCP visits. Will also fax over chart note for provider review. Diet recall: 8a: nuts and lunch meat with cheese or nothing 12p: eats out 5-6p: nuts, fruit-- 5-7 grapes 7p: low carb soup or roast with veggies 9-10p lunch meat with 5 grapes or tries nothing Beverages: 40-60oz water, cut out coffee, sometimes milk or juice Endorses eating out 2-3 x per week: Sunday [employer] buffet, professional meeting, and Sunday fast food. Seems he is not ready to give up Sunday or eating out, but willing to take lunch on Fridays. Diet currently very low in fiber. Kenton states he has reduce juice and milk intake, though still having 4oz juice 3 x per week. Endorses decreased tingling in LE, though still some tingling at night which seems likely connected with elevations in BG. Has not changed shoes, despite having discomfort in current tennis shoes. has questions about increasing medications to avoid hyperglycemia and additional questions about glycemic index. Physical Activity: Frisbee golf q other day for 45-120 min. Added walking new dog 10-15 min BID. Self-Monitoring Blood Glucose: All readings above ADA targets. Week prior he had a 241 mg/dL after dinner and fastings ranging from 162-208 mg/dL. Only received 10 lancets, needing more. Date Pre Post Pre Post Pre Post HS 06/16 168 06/17 167 207 06/18 244 147 06/19 148 06/20 179 06/21 06/22 192 Diabetes Medications: Metformin 500 mg BID Pertinent Labs: HgA1c : 8.3% H 06/17/21 04/18/21 Cholesterol: 223 H T H LDL: 122 H HDL: 29 L Past Medical History: (Last Updated 04/21/21 @ 14:02 by Rich Guaman MD) Attention deficit disorder of adult with hyperactivity (~2007) COVID-19 virus infection Essential hypertension (05/31/15) History of vasectomy (11/27/13) Ocular migraine (04/08/15) Uncontrolled type 2 diabetes mellitus with hyperglycemia (~03/2021) Intervention: This participant was very receptive. Provided appropriate educational handouts. Discussed the following topics: Recent blood sugar results and trends Medication management Glycemic index vs glycemic load Choosing complex carbs to increase fiber and pairing with protein Review of general nutrition recommendations and current intake, fiber intake Physical activity plan and impact on blood sugars Prevention of complications: foot care, neuropathy Created SMART goals for patient self-care and success. Goals: dimension warehouse supervisor meter and check BG: FBG and/or 1-2 hour pc and bring next visit- met Avoid juice- in progress Choose shoes that do not rub feet - not met Ask pharmacy for more lancets- new Set 10p snack time with fruit and cheese paired- new Pack Sunday lunch to avoid eating out- new Aim for 60oz water daily- new Follow-up: SILVERIO MATHEWS follow-up in 2-3 weeks Alexa Rosales RDN, BISI Certified Diabetes Care and Boom Operator P: [phone] Thank you for this referral
== END ==
PROVIDERS: Family Provider Internal Medicine; PCP Internal Medicine; Referring Provider Internal Medicine; Visit Provider Internal Medicine
DX: E11.9 Type 2 diabetes mellitus without complications (principal); Z71.3 Dietary counseling and surveillance; Z79.84 Long term (current) use of oral hypoglycemic drugs
CPT/HCPCS: G0108

== ENCOUNTER → 2021-08-11 12:45 | Outpatient (CLI) | payer OTHER, MEDICAID, SELFPAY ==
--- NOTE | 2021-08-11 14:20 | DIAB.MNTFU ---
Follow-up Diabetes Medical Nutrition Therapy Assessment Name: Kenton Hammond Date: 08/11/21 Time: 1245-105p Dx: Type II Diabetes Kenton presents for a quick check-in today. He is 45 min late for his appt, but would like to have a quick check-in. Reports his weight loss has plateaued. Has increased milk and juice intake since last visit. States he thinks this may be because he is feeling good and wants to experiment with foods. States he has been eating more fast food this month than usual. No longer eating out with his friend on , but kcal and CHO intake seems to have increased with beverages and fast food. States he has increased water intake. Anthropometrics: Ht: 6'1 Wt: 260-262# reported Physical Activity: cont walking dog 10-15 min BID and frisbee golf 3 x per week Self-Monitoring Blood Glucose: running out of lancets and was told by pharmacy that he must get a new rx from PCP. Most readings continue above target. All FBG above goal. Pre lunch above goal. after dinner above goal per ADA guidelines (80-130 for FBG and <180 for pc). Fastings prior to the below readings: 162, 185, 175, 172, 171. Highest reading was after a pizza night 277 mg/dL on 07/02. Seems he may benefit from increase in Dm medication. Date Pre Post Pre Post Pre Post HS 07/31 191 08/01 162 08/02 188 08/06 136 08/07 166 08/08 216 196 08/10 199 Diabetes Medications: Metformin 500 mg BID Pertinent Labs: 8.3% H 05/2021 Past Medical History: (Last Updated 04/21/21 @ 14:02 by Rich Guaman MD) Attention deficit disorder of adult with hyperactivity (~2007) COVID-19 virus infection Essential hypertension (05/31/15) History of vasectomy (11/27/13) Ocular migraine (04/08/15) Uncontrolled type 2 diabetes mellitus with hyperglycemia (~03/2021) Nutrition Rx: Carbohydrates: Meal:45-60g Snack: 15-30g Nutrition Diagnosis: Excessive CHO intake r/t eating out and beverage choices aeb pt report and elevated BG Intervention: This participant was very receptive. Provided appropriate educational handouts. Discussed the following topics: Blood sugar review and trends. Impact of food intake on results. Eating out and impact on BG Physical activity plan and progress Created SMART goals for patient self-care and success. Goals: Ask pharmacy for lancets- met Set 10p balanced snack- met Pack sunday lunch- not met Aim for 60oz water- met Avoid juice, especially before bed - new Contact provider for lancet rx- new Purchase protein options at grocery store- new Follow-up: SILVERIO MATHEWS follow-up in 3-4 weeks Alexa Rosales RDN, BISI Certified Diabetes Care and Can Carrier P: [phone] Thank you for this referral
== END ==
PROVIDERS: Family Provider Internal Medicine; PCP Internal Medicine; Referring Provider Internal Medicine; Visit Provider Internal Medicine
DX: E11.9 Type 2 diabetes mellitus without complications (principal)
CPT/HCPCS: 97803

== ENCOUNTER → 2021-09-07 17:44 | Outpatient (CLI) | payer OTHER, MEDICAID, SELFPAY ==
--- NOTE | 2021-09-08 11:15 | DIAB.FU ---
Addendum entered by Alexa Rosales 09/08/21 11:23: This appt was virtual since Kenton was unsure if he was exposed to covid or not last weekend. Complication Risk Reduction: No dilated eye exam in two years. Did see eye doc last year though. No dental exam for 1 year or more. No flu vaccine and no plans to get. Does not check bottom of feet. Will review complication risk reduction next visit Original Note: Follow-up Diabetes Education Assessment Name: Kenton Hammond Date: 09/07/21 Time: Dx: Type II Diabetes This visit was completed virtually using [employer] platform. Kenton has consented to virtual visits and is aware of risks. BG continue above target. Has lost 5# and attributes this to exercise. It could also be associated with hyperglycemia. Kenton thinks the Metformin is working well for him. Reports reduced dry mouth, which he is happy about. Decrease in frequent urination. In terms of medication, he is interested in increasing Metformin HS. States he would like to try increasing HS dose to 1000 mg. Encouraged him to discuss further with provider. Still trying to avoid sodas and higher sugar foods. Trying to watch juice portions, keeping to ? c or less. Aiming for 60oz water per day. Has questions on what he can do when BG are elevaed. Cont to eat out twice per week. Physical Activity: Frisbee golfing almost q day and walking dog 15-30 min BID. No change since last visit. Sustaining [employer] program well. 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 Games are all day on Sundays twice per month. Self-Monitoring Blood Glucose: Reports FBG between 156-191 mg/dL and pc readings of 170-245 mg/dL. Most readings continue above ADA goal. May benefit from increase in Metformin. Provider wanted to give Kenton some time to continue working on lifestyle. Activity is going well. Nutrition is still a struggle for him it seems. Kenton is checking Bg fairly consistently but states he would like to check daily. This a personal goal for him to acquire more data. Diabetes Medications: Metformin 500 mg BID Pertinent Labs: 8.3% H 05/2021 Past Medical History: (Last Updated 04/21/21 @ 14:02 by Rich Guaman MD) Attention deficit disorder of adult with hyperactivity (~2007) COVID-19 virus infection Essential hypertension (05/31/15) History of vasectomy (11/27/13) Ocular migraine (04/08/15) Uncontrolled type 2 diabetes mellitus with hyperglycemia (~03/2021) Intervention: This participant was very receptive. Provided appropriate educational handouts. Discussed the following topics: Recent blood sugar results and trends Medication management Review of general nutrition recommendations and current intake Physical activity plan and impact on blood sugars Using activity and hydration to help with elevations Created SMART goals for patient self-care and success. Goals: Avoid juice, especially before bed - improved Contact provider for lancet rx- in progress Purchase protein options at grocery store- met Aim to check BG daily- new Discuss med plan with provider- new Follow-up: SILVERIO MATHEWS follow-up in 3-4 weeks Alexa Rosales RDN, BISI Certified Diabetes Care and Software Engineer Mobile P: [phone] Thank you for this referral
== END ==
PROVIDERS: Family Provider Internal Medicine; PCP Internal Medicine; Referring Provider Internal Medicine; Visit Provider Internal Medicine
DX: E11.9 Type 2 diabetes mellitus without complications (principal); Z79.84 Long term (current) use of oral hypoglycemic drugs
CPT/HCPCS: G0108

== ENCOUNTER → 2021-09-22 08:04 | Outpatient (CLI) | payer OTHER, MEDICAID, SELFPAY ==
[2021-09-22 09:34] LABS: Hemoglobin A1C% w Est Avg Glu 7.3 % (4.0-6.0)
[2021-09-22 09:39] LABS: BUN Creatinine Ratio 16.7 (6-22); Blood Urea Nitrogen 15 mg/dL (9-20); Calcium 8.8 mg/dL (8.4-10.2); Carbon Dioxide 22 mmol/L (22-32); Chloride 108 mmol/L (98-107); Cholesterol 196 mg/dL (140-199); Estimated Glomerular Filt Rate > 60.0 mL/min (>60); Glucose 153 mg/dL (70-100); HDL Cholesterol 35 mg/dL (40-60); HEMOLYSIS < 15 (0-50); LDL Cholesterol Calculated 128 mg/dL (<100); Potassium 4.4 mmol/L (3.4-5.1); Sodium 138 mmol/L (137-145); Triglycerides 165 mg/dL (35-150)
== END ==
PROVIDERS: Family Provider Internal Medicine; PCP Internal Medicine; Referring Provider Internal Medicine; Visit Provider Internal Medicine
DX: E11.65 Type 2 diabetes mellitus with hyperglycemia (principal); I10 Essential (primary) hypertension
CPT/HCPCS: 36415; 80048; 80061; 83036

== ENCOUNTER → 2021-12-19 11:15 | Outpatient (CLI) | payer OTHER, MEDICAID, SELFPAY ==
[2021-12-19 12:59] LABS: Hemoglobin A1C% w Est Avg Glu 7.5 % (4.0-6.0)
[2021-12-19 13:52] LABS: BUN Creatinine Ratio 20.2 (6-22); Blood Urea Nitrogen 20 mg/dL (9-20); Calcium 9.4 mg/dL (8.4-10.2); Carbon Dioxide 29 mmol/L (22-32); Chloride 102 mmol/L (98-107); Estimated Glomerular Filt Rate > 60 mL/min (>60); Glucose 137 mg/dL (70-100); HEMOLYSIS < 15 (0-50); Sodium 140 mmol/L (137-145)
== END ==
PROVIDERS: Family Provider Internal Medicine; PCP Internal Medicine; Referring Provider Internal Medicine; Visit Provider Internal Medicine
DX: E11.65 Type 2 diabetes mellitus with hyperglycemia (principal); I10 Essential (primary) hypertension
CPT/HCPCS: 36415; 80048; 83036

== ENCOUNTER → 2022-01-12 12:05 | Outpatient (CLI) | payer OTHER, MEDICAID, SELFPAY ==
--- NOTE | 2022-01-12 17:42 | DIAB.FU ---
Follow-up Diabetes Education Assessment Name: Kenton Hammond Date: 01/12/22 Time: 1210-1250p Dx: Type II Diabetes Kenton presents for DM follow-up. Reports slight increase in HgA1c. Attributes this to increased sugar intake, ie sweet cereals. Diet recall also indicates high carb intake (60-100g CHO) with fast food 2-3 x per week. States portions seem to be large for starches, ie pizza, breads. Endorses trying to choose more proteins during lunch from grocery store or gas station, ie jerky, eggs, cheese, sausage. Has less healthy snacks available at home more recently. Was previously taking nuts as a snack to work. Also, endorses sometimes forgetting evening Metformin maybe 25% of the time. Does not want to set an alarm to remind. Keeps meds in the kitchen as a reminder at meal time. PCP did increase evening dose of Metformin to 1000mg. Denies frequent urination or dry mouth, which were frequent when first diagnosed. C/o neuropathy in LE. Likely exacerbated/caused by hyperglycemia. Feels he sometimes goes >4 hours without eating during the day. This may lead to large portions to satisfy hunger. Not currently checking BG. Reports limited water intake. has been drinking diet soda. Physical Activity: continues with regular elmer golf (usually daily) Self-Monitoring Blood Glucose: None Diabetes Medications: Metformin 500mg am and 1000mg pm Pertinent Labs: 11/2021: HgA1c 7.5% H (up from 7.3% in August) Past Medical History: (Last Updated 12/20/21 @ 10:15 by Rich Guaman MD) Attention deficit disorder of adult with hyperactivity (~2007) COVID-19 virus infection Essential hypertension (05/31/15) History of vasectomy (11/27/13) Ocular migraine (04/08/15) Peripheral neuropathy Uncontrolled type 2 diabetes mellitus with hyperglycemia (~03/2021) Intervention: This participant was very receptive. Provided appropriate educational handouts. Discussed the following topics: Importance of SMBG and insight into how DM mgmgnt / lifestyle change is going Review of general nutrition recommendations and current intake Eating out strategies and carb, sodium, fats Physical activity plan and impact on blood sugars Prevention of complications: impact of hyperglycemia on heart health and foot health and neuropathy Created SMART goals for patient self-care and success. Goals: Aim to check BG daily- not met Discuss med plan with provider- met Check BG daily- new go back to incorporating more water - new Reduce carb intake when eating out (keep to 60g max, prefer 45g CHO)- new Eat q 3-4 hours- new Follow-up: SILVERIO MATHEWS follow-up in 2-3 weeks. Kenton plans to attend the nutrition DSME class and then follow-up 1:1 after. It seems from this RD/CDCES point of view that he may benefit from taking max dose of Metformin and potentially an additional agent. Given neuropathy, hgA1c, and difficulty with diet changes, it is predicted that he is having pretty frequent hyperglycemia. Will cont to evaluate. Asked Kenton to bring BG log to next class for private review after class or during break. Alexa Rosales RDN, CDCES Certified Diabetes Care and Manager Drilling P: [phone] Thank you for this referral
== END ==
PROVIDERS: Family Provider Internal Medicine; PCP Internal Medicine; Referring Provider Internal Medicine; Visit Provider Internal Medicine
DX: E11.9 Type 2 diabetes mellitus without complications (principal); Z79.84 Long term (current) use of oral hypoglycemic drugs; Z71.3 Dietary counseling and surveillance
CPT/HCPCS: G0108

== ENCOUNTER → 2022-01-31 09:09 | Outpatient (CLI) | payer OTHER, MEDICAID, SELFPAY ==
--- NOTE | 2022-02-02 17:21 | DIAB.FU ---
Diabetes Education Class Series: Diabetes and Nutrition Name: Kenton Hammond Date: 01/31/22 Time: 757p-8285a Kenton reports he has been working on wt loss. States he has been trying to manage carb portions. Class topics covered: ? Debunk nutrition myths and discuss how to sustain healthy eating long-term through moderation and variety ? Define macronutrients and determine their impact on blood sugars ? Discuss macronutrient pairing, Plate Method, and carb counting ? Review general recommendations for carbohydrates ? Practice label reading ? Discuss the role of fiber in diabetes and provide examples of sources ? Review heart health nutrition: fats, fiber, and sodium ? Determine recommendations for grocery shopping and eating out ? Discuss alcohol recommendations ? Review the role of substitute sugars in diabetes management ? Set SMART goals Goal Set: Add vegetables to grocery list. Start carb counting some meals 3-5 x per week Follow-up: Diabetes Physiology and Medication Class in one week Alexa Rosales RDN, [facility] Certified Diabetes Care and Wireless Development Manager P: [phone] Thank you for this referral
== END ==
PROVIDERS: Family Provider Internal Medicine; PCP Internal Medicine; Referring Provider Internal Medicine; Visit Provider Internal Medicine
DX: E11.9 Type 2 diabetes mellitus without complications (principal); Z71.3 Dietary counseling and surveillance
CPT/HCPCS: G0109

== ENCOUNTER → 2022-03-15 11:47 | Outpatient (CLI) | payer OTHER, MEDICAID, SELFPAY ==
--- NOTE | 2022-03-21 15:35 | DIAB.FU ---
Follow-up Diabetes Education Assessment Name: Kenton Hammond Date: 03/15/22 Time: 12-8827p Dx: Type II Diabetes Kenton presents for DM follow-up. Reports he is due to labs and plans to complete HgA1c. States he has fallen off many healthy behaviors. Physical activity is going well. States his feels that he has been cheating too much with food options. And states he has not been checking his BG. Continues on 1500 mg Metformin daily. Sometimes forgets pm dose of Metformin. Endorses some food cravings this week. Was off his Adderall and feels this impacted his food intake, increased. 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 States when eating out he has cut down on CHO and inc PRO States overall he is feeling good. Does c/o LE neuropathy. States his mother has had neuropathy even prior to her having DM. He has not acquired neuropathy until after DM diagnosis and notices worsening symptoms with higher carb intake. Reduced frequent urination and thirst recently. States he would like to see what his new HgA1c is before making lifestyle changes. There is some concern that he may be a patient that experiences hyperglycemia even with HgA1c of 7%, given h/o HgA1c and blood sugars. Physical Activity: Walking dog 30-60min BID ; frisbee golf daily. today he tells me that his dog 2 y/o has bone cancer. Self-Monitoring Blood Glucose: None. Last checks were often 160-180mg/dL, sometimes 200 Diabetes Medications: Metformin 500mg am and 1000mg pm Pertinent Labs: 11/2021: HgA1c 7.5% H (up from 7.3% in August) Past Medical History: (Last Updated 03/21/22 @ 09:44 by Rich Guaman MD) Attention deficit disorder of adult with hyperactivity (~2007) Controlled type 2 diabetes mellitus without complication COVID-19 virus infection Essential hypertension (05/31/15) Ocular migraine (04/08/15) Peripheral neuropathy Uncontrolled type 2 diabetes mellitus with hyperglycemia (~03/2021) Intervention: This participant was very receptive. Provided appropriate educational handouts. Discussed the following topics: Recent health behaviors Medication management Nutrition goals and strategies foot health and neuropathy. May benefit from a microfilament LE test Review of general nutrition recommendations and current intake Created SMART goals for patient self-care and success. Goals: Check BG daily- not met go back to incorporating more water - not discussed Reduce carb intake when eating out (keep to 60g max, prefer 45g CHO)- improved Eat q 3-4 hours- not discussed Try a food tracker- new take shoes off at doctor visit-new Take Metformin as rx'd- new Try batch cook Mondays- new Follow-up: SILVERIO MATHEWS follow-up in 2 months as requested by pt. Encouraged sooner f/u if needed. He agreed. Alexa Rosales, SILVERIO, [facility] Certified Diabetes Care and Hearing Therapist P: [phone] Thank you for this referral
== END ==
PROVIDERS: Family Provider Internal Medicine; PCP Internal Medicine; Referring Provider Internal Medicine; Visit Provider Internal Medicine
DX: E11.40 Type 2 diabetes mellitus with diabetic neuropathy, unspecified (principal); Z71.3 Dietary counseling and surveillance; Z79.84 Long term (current) use of oral hypoglycemic drugs
CPT/HCPCS: G0108

== ENCOUNTER → 2022-03-20 12:10 | Outpatient (CLI) | payer OTHER, MEDICAID, SELFPAY ==
[2022-03-20 13:10] LABS: Hemoglobin A1C% w Est Avg Glu 6.9 % (4.0-6.0)
[2022-03-20 13:29] LABS: BUN Creatinine Ratio 16.2 (6-22); Blood Urea Nitrogen 18 mg/dL (9-20); Calcium 9.2 mg/dL (8.4-10.2); Carbon Dioxide 24 mmol/L (22-32); Chloride 103 mmol/L (98-107); Estimated Glomerular Filt Rate > 60 mL/min (>60); Glucose 136 mg/dL (70-100); HEMOLYSIS < 15 (0-50); Sodium 138 mmol/L (137-145)
== END ==
PROVIDERS: Family Provider Internal Medicine; PCP Internal Medicine; Referring Provider Internal Medicine; Visit Provider Internal Medicine
DX: E11.65 Type 2 diabetes mellitus with hyperglycemia (principal)
CPT/HCPCS: 36415; 80048; 83036

== ENCOUNTER → 2022-05-10 12:03 | Outpatient (CLI) | payer OTHER, MEDICAID, SELFPAY ==
--- NOTE | 2022-05-18 17:24 | DIAB.FU ---
Follow-up Diabetes Education Assessment Name: Kenton Hammond Date: 05/10/22 Time: [id number] Dx: Type II Diabetes Kenton present for DM follow-up. Reports improved hgA1c. Still having symptoms of hyperglycemia, ie neuropathy in LE. Despite hgA1c of 6.9%, BG are elevated after dinner sometimes in the 200s, indicating that the hgA1c average is going well but actual BG are high. States he sometimes may miss a Metformin dose and feel foggy and tingling in feet. States he feels very connected to his body and feeling hyperglycemia. Seems he may not take meds if he is not feeling symptoms at times. This could exacerbate risk for DM complications in the future and result in elevated BG later. Seems he may also need a system in place to help remind him to take Metformin. high carb intake and eating out may occur when at work for lunch (usually 2+ days per week). Per diet recall, meals at home are often moderate to low in CHO. Aiming to maintain a low carb diet. States on recent vacation eating went very well with support of his . Anthropometrics: Wt: 254.6# today Physical Activity: Reports reduced walking since having to put dog down. Recently got a puppy. Plans to start walking soon. Cont disc gold 3-5 x per week for 60+ min but feels he could inc intensity. Has new resistance training machine that he would like to start using. Self-Monitoring Blood Glucose: Recent FBG today 140 mg/dL. After dinner 190-240 mg/dL recently. All elevated per ADA guidelines. Diabetes Medications: Metformin 500mg am and 1000mg pm Pertinent Labs: HgA1c: 02/2022 6.9% 11/2021: 7.5% H 08/2021: 7.3% Past Medical History: (Last Updated 03/21/22 @ 09:44 by Rich Guaman MD) Attention deficit disorder of adult with hyperactivity (~2007) Controlled type 2 diabetes mellitus without complication COVID-19 virus infection Essential hypertension (05/31/15) Ocular migraine (04/08/15) Peripheral neuropathy Uncontrolled type 2 diabetes mellitus with hyperglycemia (~03/2021) Intervention: This participant was very receptive. Provided appropriate educational handouts. Discussed the following topics: Recent blood sugar results and trends Review of general nutrition recommendations and current intake Physical activity plan and impact on blood sugars Prevention of complications: foot care and avoiding complication risk/exacerbation Supporting medication use as rx'd Created SMART goals for patient self-care and success. Goals: Try a food tracker- not met take shoes off at doctor visit-met Take Metformin as rx'd- in progress Try batch cook Mondays- not discussed Move metformin to bedside- new Take lunch to work at least 2x per week - new Increase intensity safely of disc golf- new Resistance training 2-3x per week- new Follow-up: SILVERIO MATHEWS follow-up in 2 months per pt request Given elevated BG it does seem as though he would benefit from full dose metformin, despite 6.9% HgA1c. Kenton continues to work on lifestyle changes. Perhaps if he is taking Metformin more consistently numbers may improve. Alexa Rosales RDN, [facility] Certified Diabetes Care and [employer] P: [phone] Thank you for this referral
== END ==
PROVIDERS: Family Provider Internal Medicine; PCP Internal Medicine; Referring Provider Internal Medicine; Visit Provider Internal Medicine
DX: E11.65 Type 2 diabetes mellitus with hyperglycemia (principal); Z71.3 Dietary counseling and surveillance; Z79.84 Long term (current) use of oral hypoglycemic drugs
CPT/HCPCS: G0108

== ENCOUNTER → 2022-06-28 11:55 | Outpatient (CLI) | payer OTHER, MEDICAID, SELFPAY ==
--- NOTE | 2022-06-28 13:04 | DIAB.FU ---
Follow-up Diabetes Education Assessment Name: Kenton Hammond Date: 06/28/22 Time: 121230p Dx: Type II Diabetes Provider: Rowena Fung presents for follow-up today. States overall feeing really good and feels he is managing DM well. Reports moving HS Metformin dose to bedside to reduce forgetting dose. Endorses consistency with taking med. Reports reduced dry mouth, frequent urination, and neuropathy in feet. States he has been very conscious of carb intake for most meals. Reduced eating out by bringing lunch to work 3 days per week. Often taking canned soup for lunch. Also keeping snack bar in his car. His is now working second time worker, so he and the kids are cooking dinner a couple days per week. Reports preparing balanced meals, ie meat, veggies, and moderate carb. Anthropometrics: Wt: 248# reported Last wt: 254.6# today Physical Activity: Reports walking puppy daily for 20-30 minutes per day. Cont [employer] 3-5 x per week for 60+ min and has been working on increasing walking speed between holes. Has new resistance training machine but has not started use. States main barrier is the placement of the machine and his daughter's swing. Moving the swing will help make the machine more accessible per report. Self-Monitoring Blood Glucose: Recent pc dinner readings reported as 150-220 mg/dL. No FBG. Did not bring log book or meter today. Diabetes Medications: Metformin 500mg am and 1000mg pm Pertinent Labs: HgA1c: 02/2022 6.9% 11/2021: 7.5% H 08/2021: 7.3% Past Medical History: (Last Updated 03/21/22 @ 09:44 by Rich Guaman MD) Attention deficit disorder of adult with hyperactivity (~2007) Controlled type 2 diabetes mellitus without complication COVID-19 virus infection Essential hypertension (05/31/15) Ocular migraine (04/08/15) Peripheral neuropathy Uncontrolled type 2 diabetes mellitus with hyperglycemia (~03/2021) Intervention: This participant was very receptive. Provided appropriate educational handouts. Discussed the following topics: Recent blood sugar results and trends Potential for tracking and bringing in for evaluation Physical activity plan and barriers Created SMART goals for patient self-care and success. Goals: Move metformin to bedside- met Take lunch to work at least 2x per week - met Increase intensity safely of disc golf- met Resistance training 2-3x per week- in progress Sunday and Sunday Move swing to make machine more accessible- new Check BG: FBG and pc and bring log book- new Follow-up: SILVERIO MATHEWS follow-up in 4-6 weeks. Kenton would like to bring some BG in for evaluation. We will determine further visit needs at that time. Overall, he is feeling good, but still might be experiencing frequent hyperglycemia. Alexa Rosales RDN, [facility] Certified Diabetes Care and Hide Handler P: [phone] Thank you for this referral
== END ==
PROVIDERS: Family Provider Internal Medicine; PCP Internal Medicine; Referring Provider Internal Medicine; Visit Provider Internal Medicine
DX: E11.9 Type 2 diabetes mellitus without complications (principal); Z79.84 Long term (current) use of oral hypoglycemic drugs; Z71.3 Dietary counseling and surveillance
CPT/HCPCS: G0108

== ENCOUNTER → 2022-08-08 13:14 | Outpatient (CLI) | payer OTHER, MEDICAID, SELFPAY ==
--- NOTE | 2022-08-17 10:52 | DIAB.FU ---
Follow-up Diabetes Education Assessment Name: Kenton Hammond Date: 08/08/22 Time: 115-2p Dx: Type II Diabetes Kenton presents for Dm follow-up. His , Marcie, joins us via phone call. Today they have questions regarding complex vs simple carbs, BG goals, hypoglycemia, breakfast ideas, holiday eating, and eating out. Kenton reports he has been consistent with Metformin dose. Does reports frequent eating out or ordering-in fast food etc. Physical Activity: Continues with PA program. No added resistance exercises. Self-Monitoring Blood Glucose: Marcie is concerned that he is not checking as often. No log book kept, no meter today. Reports indicate hyperglycemia with FBG usually 140-160 and sometimes >180mg/dL, few times 190mg/dL. Pre dinner ranging 140-180mg/dL. Highest reading reported 250 mg/dL. Diabetes Medications: 1000mg Metformin pm 500mg Metformin am Pertinent Labs: HgA1c: 02/2022 6.9% 11/2021: 7.5% H 08/2021: 7.3% Past Medical History: (Last Updated 03/21/22 @ 09:44 by Rich Guaman MD) Attention deficit disorder of adult with hyperactivity (~2007) Controlled type 2 diabetes mellitus without complication COVID-19 virus infection Essential hypertension (05/31/15) Ocular migraine (04/08/15) Peripheral neuropathy Uncontrolled type 2 diabetes mellitus with hyperglycemia (~03/2021) Intervention: This participant was very receptive. Provided appropriate educational handouts. Discussed the following topics: Recent blood sugar results and trends Medication management: Likelihood of needing additional Metformin or other Dm agent despite last HgA1c Review of general nutrition recommendations and current intake Breakfast ideas using Rafal to track Bg BG goals: FBG 80-130 mg/dl and 1-2 hr pc <180 mg/dL Holiday eating strategies Created SMART goals for patient self-care and success. Goals: Resistance training 2-3x per week- not met Sunday and Sunday Move swing to make machine more accessible- met Check BG: FBG and pc and bring log book- not met use rafal to track BG- new Check FBG and 1-2 hr pc-new Incorporate egg sandwiches for breakfast- new Follow-up: HAON CDCES follow-up with sending SMBG results in 3 weeks. Kenton would like to f/u 1:1 in September. Given frequent hyperglycemia, he would likely benefit from max Metformin and potential for additional BG lowering agent. Alexa Rosales RDN, [facility] Certified Diabetes Care and Air Pollution Inspector P: [phone] Thank you for this referral
== END ==
PROVIDERS: Family Provider Internal Medicine; PCP Internal Medicine; Referring Provider Internal Medicine; Visit Provider Internal Medicine
DX: E11.9 Type 2 diabetes mellitus without complications (principal); Z79.84 Long term (current) use of oral hypoglycemic drugs; Z71.3 Dietary counseling and surveillance
CPT/HCPCS: G0108

== ENCOUNTER → 2022-09-18 10:37 | Outpatient (CLI) | payer OTHER, MEDICAID, SELFPAY ==
[2022-09-18 11:36] LABS: Hemoglobin A1C% w Est Avg Glu 7.1 % (4.0-6.0)
[2022-09-18 11:45] LABS: Cholesterol 219 mg/dL (140-199); HDL Cholesterol 31 mg/dL (40-60); LDL Cholesterol Calculated 141 mg/dL (<100); Triglycerides 235 mg/dL (35-150)
[2022-09-18 11:59] LABS: Creatinine Urine Random 124.7 mg/dL
[2022-09-18 12:03] LABS: Microalbumi Creatinin Ratio Ur 5.6 ug/mg CR (<30); Microalbumin Urine Random 0.7 mg/dL (0-1.6)
== END ==
PROVIDERS: Family Provider Internal Medicine; PCP Internal Medicine; Referring Provider Internal Medicine; Visit Provider Internal Medicine
DX: E11.65 Type 2 diabetes mellitus with hyperglycemia (principal); I10 Essential (primary) hypertension
CPT/HCPCS: 36415; 80061; 82043; 82570; 83036

== ENCOUNTER → 2022-10-05 10:19 | Outpatient (CLI) | payer OTHER, MEDICAID, SELFPAY ==
--- NOTE | 2022-10-23 14:30 | DIAB.FU ---
Follow-up Diabetes Education Assessment Name: Kenton Hammond Date: 10/05/22 Time: 1351-8561f Dx: Type II Diabetes Provider: Rowena Fung presents for DM follow-up. reports forgetting Metformin in evening at times. Still keeping it at bedside. States LE neuropathy will sometimes remind his to take it. Realizes he should take full rx dose to prevent progressive neuropathy. May consider taking oral med at dinner as a reminder. Dinner at 7-9p. Open to setting an alarm. Got a tabletop grill for work so eating out less. Reduced eating out to 2x per week at lunch. Endorses weight gain over holiday due to excessive kcal intake. Also feels that perhaps lower dose of adderall has increased his appetite. recently increased adderall to help with focus, which he anticipates may help reduce appetite as well. Does endorse SE of dry mouth. Per diet recall, some increased juice intake recently. also potentially high carb intake at lunch, ie sandwich, milk/juice, and fruit. Physical Activity: 30 min dog walks in evening. started resistance training 3 weeks ago 1x per week. Disc gold 3x per week. wants to increase intensity of walking for disc golf. Self-Monitoring Blood Glucose: none recently. Reports prior to d/c of SMBG FBG was 140-160, sometimes 180 (elevated). Later in the day more in range 160-180mg/dl. Some on/off knee pain reported. Diabetes Medications: 1000mg Metformin pm 500mg Metformin am Pertinent Labs: HgA1c: 08/2022: 7.1% 02/2022 6.9% 11/2021: 7.5% H 08/2021: 7.3% Past Medical History: (Last Updated 03/21/22 @ 09:44 by Rich Guaman MD) Attention deficit disorder of adult with hyperactivity (~2007) Controlled type 2 diabetes mellitus without complication COVID-19 virus infection Essential hypertension (05/31/15) Ocular migraine (04/08/15) Peripheral neuropathy Uncontrolled type 2 diabetes mellitus with hyperglycemia (~03/2021) Intervention: This participant was very receptive. Provided appropriate educational handouts. Discussed the following topics: Previous blood sugar results and trends Medication management and reminders for meds Review of general nutrition recommendations and current intake Physical activity plan and impact on blood sugars Prevention of complications Created SMART goals for patient self-care and success. Goals: use michael to track BG- not met Check FBG and 1-2 hr pc- not met Incorporate egg sandwiches for breakfast- met Try alarm for medication- new Can trial intensity of exercise, be mindful of knee pain- new For lunch move fruit to afternoon snack- new Avoid juice, choose water or milk- new Follow-up: SILVERIO MATHEWS follow-up in 2 months per Kenton's request. Alexa Rosales, SILVERIO, [facility] Certified Diabetes Care and Knockout Man P: [phone] Thank you for this referral
== END ==
PROVIDERS: Family Provider Internal Medicine; PCP Internal Medicine; Referring Provider Internal Medicine; Visit Provider Internal Medicine
DX: E11.40 Type 2 diabetes mellitus with diabetic neuropathy, unspecified (principal); Z71.3 Dietary counseling and surveillance; Z79.84 Long term (current) use of oral hypoglycemic drugs
CPT/HCPCS: G0108

== ENCOUNTER → 2022-11-28 13:07 | Outpatient (CLI) | payer OTHER, MEDICAID, SELFPAY ==
--- NOTE | 2022-11-28 13:45 | DIAB.FU ---
Follow-up Diabetes Education Assessment Name: Kenton Hammond Date: 11/28/22 Time: 115-145p Dx: Type II Diabetes Kenton presents for Dm follow-up. Reports he feels things are going well, but states I don't have the numbers to back it up. Has not been checking BG recently. Interested in restarting. States neuropathy is on/off, which seems more frequent than last visit. Pharmacy short on his ADHD meds, which increases appetite. Has noticed increase carb intake and increased eating out. Plans to buy some fruits, veggie and nuts to snack on to help with cravings. Plans to call pharmacy for problem solving for rx, ie dose or changing pharmacies. Also reports his parents recently visits. Father with T2Dm and insulin use. States this was motivating for him to avoid insulin, but also sometimes not a great influence since father still makes high carb choices. Breakfast is enjoying homemade sandwiches. Lunch is often 2 chx sandwiches from [employer]. Avoiding most sugar beverages, maybe 4oz juice during day. Alarm for meds is very successful. Moved fruit option to afternoon. Endorses likely increase in weight, reported 270#. Attributes this to increased food cravings. Physical Activity: Increased disc golf to 5 days per week with increased intensity, more jogging. Not walking dog but wants to. Not doing resistance training due to outdoor equipment and weather dependent. Self-Monitoring Blood Glucose: None recently. One readings 15 min after breakfast of 206mg/dl after oatmeal x 1c with 1c milk, honey and sf syrup. Interested in glucose tracking michael. Diabetes Medications: 1000mg Metformin pm 500mg Metformin am Pertinent Labs: HgA1c: 08/2022: 7.1% 02/2022 6.9% 11/2021: 7.5% H 08/2021: 7.3% Past Medical History: (Last Updated 03/21/22 @ 09:44 by Rich Guaman MD) Attention deficit disorder of adult with hyperactivity (~2007) Controlled type 2 diabetes mellitus without complication COVID-19 virus infection Essential hypertension (05/31/15) Ocular migraine (04/08/15) Peripheral neuropathy Uncontrolled type 2 diabetes mellitus with hyperglycemia (~03/2021) Intervention: This participant was very receptive. Provided appropriate educational handouts. Discussed the following topics: Potential for increase to HgA1c with recent BG result and increased wt Strategies for navigating rx with pharmacy for ADHD meds Importance of SMBG even a few times per week Impact of visit from father and DM management motivation Managing cravings with lower carb foods. Physical activity progress and plan Created SMART goals for patient self-care and success. Goals: Try alarm for medication- met Can trial intensity of exercise, be mindful of knee pain-met For lunch move fruit to afternoon snack- met Avoid juice, choose water or milk- met Start walking dog again-new consider resistance training again-new SMBG 3x per week - new Follow-up: SILVERIO MATHEWS follow-up in 4-5 weeks Alexa Rosales RDN, [facility] Certified Diabetes Care and Fish Hatchery Superintendent P: [phone] Thank you for this referral
== END ==
PROVIDERS: Family Provider Internal Medicine; PCP Internal Medicine; Referring Provider Internal Medicine; Visit Provider Internal Medicine
DX: E11.9 Type 2 diabetes mellitus without complications (principal); Z79.84 Long term (current) use of oral hypoglycemic drugs; Z71.3 Dietary counseling and surveillance
CPT/HCPCS: G0108

== ENCOUNTER → 2023-01-09 13:01 | Outpatient (CLI) | payer OTHER, MEDICAID, SELFPAY ==
--- NOTE | 2023-01-24 10:09 | DIAB.MNTFU ---
Follow-up Diabetes Medical Nutrition Therapy Assessment Name: Kenton Hammond Date: 01/09/23 Time: 110-145p Dx: Type II Diabetes Kenton presents for follow-up DM visit. States he has been utilizing a home geriatric nurse program. Trying to cook larger meals for leftovers. Trying to choose more healthy options, especially in the evening. Describes symptoms of potentially progressing neuropathy stating it feels like I am stepping on something not just tingling. BG continue to be elevated. Seems he would benefit from max metformin dose and potentially a secondary DM medication. Fast food intake continues, however has improved. Reduced to 2x per week. States he will sometimes have a late night snack, which may impact FBG. Also reports his mindset may need to change about BG goals. Does not seem as concerned with BG are above goal per report. Diet Recall: B: egg and cheese sandwich L: grill at work: protein and apple 2x per week; fast food 2x per week (ie hot dog x 2) and home 1x per week (ie sandwich and one fruit) sn: beef jerky or nuts or fruit D: home geriatric nurse dinner Anthropometrics: Wt: 270# last reported wt 11/2022 Physical Activity: Ankle injury impacted activity over the last two weeks. Decrease in disc golf. Started feeling better this past weekend. Dog park with dog 2-3x per week (walking park). Resistance training 3x since last visit. Self-Monitoring Blood Glucose: Reports average BG around 180 mg/dl. FBG consistently 160-180mg/dl. Evenings 180-190mg/dl, sometimes 220s. Kenton has had pretty consistent elevated BG. Likely benefit from added DM medication. Diabetes Medications: 1000mg Metformin pm 500mg Metformin am Pertinent Labs: HgA1c: 08/2022: 7.1% 02/2022 6.9% 11/2021: 7.5% H 08/2021: 7.3% Past Medical History: (Last Updated 03/21/22 @ 09:44 by Rich Guaman MD) Attention deficit disorder of adult with hyperactivity (~2007) Controlled type 2 diabetes mellitus without complication COVID-19 virus infection Essential hypertension (05/31/15) Ocular migraine (04/08/15) Peripheral neuropathy Uncontrolled type 2 diabetes mellitus with hyperglycemia (~03/2021) Nutrition Rx: Carbohydrates: Meal:45-60g Snack:15-30g Nutrition Diagnosis: Physical inactivity r/t recent injury aeb pt report Predicted excessive Na intake r/t eating out aeb pt report and diet recall Intervention: This participant was very receptive. Provided appropriate educational handouts. Discussed the following topics: Blood sugar review and trends. Impact of food intake and DM physiology on results. SMBG: ADA goals and checking some pc readings Potential for added medication and encouraged discussion with provider Eating out Physical activity plan and progress Created SMART goals for patient self-care and success. Goals: Start walking dog again-not met consider resistance training again-met SMBG 3x per week - met Increase resistance training to 2-3x per week- new Check a few postprandial BG readings- new Avoid snacking past 8pm- new Follow-up: Sees provider in February. Requested follow-up with RD thereafter. This RD will be on leave. Scheduled him with Sheron BUI after PCP visit. Kenton does seem interested in improving DM care. With recent elevated BG, would certainly benefit from full dose Metformin and possibly additional agent, especially for FBG management. If BG do not improve by PCP visit, encouraged him to discuss options with his provider. He agreed to this plan. Alexa Rosales RDN, [facility] Certified Diabetes Care and Customer Service Consultant P: [phone] Thank you for this referral
== END ==
PROVIDERS: Family Provider Internal Medicine; PCP Internal Medicine; Referring Provider Internal Medicine; Visit Provider Internal Medicine
DX: E11.9 Type 2 diabetes mellitus without complications (principal); Z79.84 Long term (current) use of oral hypoglycemic drugs; Z71.3 Dietary counseling and surveillance
CPT/HCPCS: 97803

== ENCOUNTER → 2023-03-19 10:00 | Outpatient (CLI) | payer OTHER, MEDICAID, SELFPAY ==
[2023-03-19 11:09] LABS: Alanine Aminotransferase 25 IU/L (<50); Albumin 4.2 g/dL (3.5-5.0); Albumin Globulin Ratio 1.2 (1.0-2.8); Alkaline Phosphatase 72 U/L (38-126); Aspartate Aminotransferase 19 IU/L (17-59); BUN Creatinine Ratio 21.3 (6-22); Bilirubin Total 0.6 mg/dL (0.2-1.3); Blood Urea Nitrogen 19 mg/dL (9-20); Calcium 8.8 mg/dL (8.4-10.2); Carbon Dioxide 25 mmol/L (22-32); Chloride 103 mmol/L (98-107); Cholesterol 222 mg/dL (140-199); Estimated Glomerular Filt Rate > 60 mL/min (>60); Globulin 3.4 g/dL (1.7-4.1); Glucose 161 mg/dL (70-100); HDL Cholesterol 36 mg/dL (40-60); HEMOLYSIS < 15 (0-50); LDL Cholesterol Calculated 126 mg/dL (<100); Potassium 4.4 mmol/L (3.4-5.1); Sodium 137 mmol/L (137-145); Total Protein 7.6 g/dL (6.3-8.2); Triglycerides 301 mg/dL (35-150)
[2023-03-20 05:50] LABS: Labcorp Hemoglobin (Hb) A1c 7.6 % (4.8-5.6)
== END ==
PROVIDERS: Family Provider Internal Medicine; PCP Internal Medicine; Referring Provider Internal Medicine; Visit Provider Internal Medicine
DX: E11.9 Type 2 diabetes mellitus without complications (principal); E78.5 Hyperlipidemia, unspecified; I10 Essential (primary) hypertension
CPT/HCPCS: 36415; 80053; 80061; 83036

== ENCOUNTER → 2023-06-18 08:32 | Outpatient (CLI) | payer OTHER, MEDICAID, SELFPAY ==
[2023-06-18 10:29] LABS: Hemoglobin A1C% w Est Avg Glu 7.8 % (4.0-6.0)
[2023-06-18 10:37] LABS: BUN Creatinine Ratio 17.3 (6-22); Blood Urea Nitrogen 18 mg/dL (9-20); Calcium 9.4 mg/dL (8.4-10.2); Carbon Dioxide 22 mmol/L (22-32); Chloride 102 mmol/L (98-107); Estimated Glomerular Filt Rate > 60 mL/min (>60); Glucose 177 mg/dL (70-100); HEMOLYSIS < 15 (0-50); Potassium 4.3 mmol/L (3.4-5.1); Sodium 135 mmol/L (137-145); Uric Acid 9.4 mg/dL (3.5-8.5)
== END ==
PROVIDERS: Family Provider Internal Medicine; PCP Internal Medicine; Referring Provider Internal Medicine; Visit Provider Internal Medicine
DX: E11.65 Type 2 diabetes mellitus with hyperglycemia (principal); M10.9 Gout, unspecified
CPT/HCPCS: 36415; 80048; 83036; 84550

== ENCOUNTER → 2023-09-17 08:43 | Outpatient (CLI) | payer OTHER, SELFPAY ==
[2023-09-17 10:00] LABS: BUN Creatinine Ratio 24.8 (6-22); Blood Urea Nitrogen 27 mg/dL (9-20); Calcium 9.7 mg/dL (8.4-10.2); Carbon Dioxide 21 mmol/L (22-32); Chloride 105 mmol/L (98-107); Estimated Glomerular Filt Rate > 60 mL/min (>60); Glucose 154 mg/dL (70-100); HEMOLYSIS < 15 (0-50); Sodium 136 mmol/L (137-145); Uric Acid 7.4 mg/dL (3.5-8.5)
[2023-09-17 10:01] LABS: Hemoglobin A1C% w Est Avg Glu 6.5 % (4.0-6.0)
== END ==
PROVIDERS: Family Provider Internal Medicine; PCP Internal Medicine; Referring Provider Internal Medicine; Visit Provider Internal Medicine
DX: I10 Essential (primary) hypertension (principal); E11.65 Type 2 diabetes mellitus with hyperglycemia; M10.9 Gout, unspecified
CPT/HCPCS: 36415; 80048; 83036; 84550

== ENCOUNTER → 2023-12-17 08:55 | Outpatient (CLI) | payer OTHER, SELFPAY ==
[2023-12-17 09:49] LABS: Hemoglobin A1C% w Est Avg Glu 6.6 % (4.0-6.0)
[2023-12-17 09:54] LABS: BUN Creatinine Ratio 17.8 (6-22); Blood Urea Nitrogen 19 mg/dL (9-20); Calcium 9.2 mg/dL (8.4-10.2); Carbon Dioxide 25 mmol/L (22-32); Chloride 103 mmol/L (98-107); Estimated Glomerular Filt Rate > 60 mL/min (>60); Glucose 125 mg/dL (70-100); HEMOLYSIS < 15 (0-50); Potassium 4.2 mmol/L (3.4-5.1); Sodium 135 mmol/L (137-145)
[2023-12-17 15:39] LABS: Creatinine Urine Random 94.9 mg/dL
[2023-12-17 15:41] LABS: Microalbumin Urine Random < 0.6 mg/dL (0-1.6)
== END ==
LOC: LAB 08:56
PROVIDERS: Family Provider Internal Medicine; PCP Internal Medicine; Referring Provider Internal Medicine; Visit Provider Internal Medicine
DX: E11.65 Type 2 diabetes mellitus with hyperglycemia (principal); I10 Essential (primary) hypertension
CPT/HCPCS: 36415; 80048; 82043; 82570; 83036

== ENCOUNTER → 2024-06-16 09:47 | Outpatient (CLI) | payer BC, SELFPAY ==
[2024-06-16 12:02] LABS: Hemoglobin A1C% w Est Avg Glu 6.8 % (4.0-6.0)
[2024-06-16 12:18] LABS: HEMOLYSIS < 15 (0-50)
[2024-06-16 12:19] LABS: Alanine Aminotransferase 24 IU/L (<50); Albumin Globulin Ratio 1.4 (1.0-2.8); Alkaline Phosphatase 75 U/L (38-126); Aspartate Aminotransferase 22 IU/L (17-59); BUN Creatinine Ratio 14.8 (6-22); Bilirubin Total 0.7 mg/dL (0.2-1.3); Blood Urea Nitrogen 16 mg/dL (9-20); Calcium 8.8 mg/dL (8.4-10.2); Carbon Dioxide 22 mmol/L (22-32); Chloride 104 mmol/L (98-107); Cholesterol 201 mg/dL (140-199); Estimated Glomerular Filt Rate > 60 mL/min (>60); Globulin 2.8 g/dL (1.7-4.1); Glucose 123 mg/dL (70-100); HDL Cholesterol 33 mg/dL (40-60); LDL Cholesterol Calculated 107 mg/dL (<100); Sodium 134 mmol/L (137-145); Total Protein 6.8 g/dL (6.3-8.2); Triglycerides 305 mg/dL (35-150)
== END ==
PROVIDERS: Family Provider Internal Medicine; PCP Internal Medicine; Referring Provider Internal Medicine; Visit Provider Internal Medicine
DX: E11.9 Type 2 diabetes mellitus without complications (principal); I10 Essential (primary) hypertension
CPT/HCPCS: 36415; 80053; 80061; 83036

== ENCOUNTER → 2025-02-11 07:10 | Outpatient (CLI) | payer BC, SELFPAY ==
[2025-02-11 07:55] LABS: Alanine Aminotransferase 40 IU/L (<50); Albumin 3.9 g/dL (3.5-5.0); Albumin Globulin Ratio 1.3 (1.0-2.8); Alkaline Phosphatase 67 U/L (38-126); Aspartate Aminotransferase 29 IU/L (17-59); BUN Creatinine Ratio 20.2 (6-22); Bilirubin Total 0.5 mg/dL (0.2-1.3); Blood Urea Nitrogen 19 mg/dL (9-20); Calcium 8.8 mg/dL (8.4-10.2); Carbon Dioxide 18 mmol/L (22-32); Chloride 110 mmol/L (98-107); Cholesterol 196 mg/dL (140-199); Estimated Glomerular Filt Rate > 60 mL/min (>60); Globulin 2.9 g/dL (1.7-4.1); Glucose 168 mg/dL (70-99); HDL Cholesterol 36 mg/dL (40-60); HEMOLYSIS < 15 (0-50); LDL Cholesterol Calculated 111 mg/dL (<100); Potassium 4.1 mmol/L (3.4-5.1); Sodium 138 mmol/L (137-145); Total Protein 6.8 g/dL (6.3-8.2); Triglycerides 244 mg/dL (35-150)
[2025-02-11 07:58] LABS: Hemoglobin A1C% w Est Avg Glu 7.1 % (4.0-6.0)
[2025-02-11 10:04] LABS: Creatinine Urine Random 110.86 mg/dL
[2025-02-11 10:10] LABS: Microalbumin Urine Random 0.7 mg/dL (0-1.6)
== END ==
PROVIDERS: PCP Internal Medicine; Referring Provider Internal Medicine; Visit Provider Internal Medicine
DX: E11.9 Type 2 diabetes mellitus without complications (principal); I10 Essential (primary) hypertension; F90.9 Attention-deficit hyperactivity disorder, unspecified type
CPT/HCPCS: 36415; 80053; 80061; 82043; 82570; 83036

== ENCOUNTER → 2025-08-03 10:15 | Outpatient (CLI) | payer BC, SELFPAY ==
[2025-08-03 11:14] LABS: Hemoglobin A1C% w Est Avg Glu 8.2 % (4.0-6.0)
[2025-08-03 11:24] LABS: Alanine Aminotransferase 35 IU/L (<50); Albumin 4.3 g/dL (3.5-5.0); Albumin Globulin Ratio 1.3 (1.0-2.8); Alkaline Phosphatase 72 U/L (38-126); Blood Urea Nitrogen 20 mg/dL (9-20); Calcium 8.9 mg/dL (8.4-10.2); Carbon Dioxide 22 mmol/L (22-32); Chloride 106 mmol/L (98-107); Cholesterol 239 mg/dL (140-199); Estimated Glomerular Filt Rate > 60 mL/min (>60); Globulin 3.4 g/dL (1.7-4.1); Glucose 221 mg/dL (70-99); HDL Cholesterol 36 mg/dL (40-60); HEMOLYSIS < 15 (0-50); Potassium 4.3 mmol/L (3.4-5.1); Sodium 140 mmol/L (137-145); Total Protein 7.7 g/dL (6.3-8.2); Triglycerides 323 mg/dL (35-150); Uric Acid 9.6 mg/dL (3.5-8.5)
== END ==
PROVIDERS: PCP Internal Medicine; Referring Provider Internal Medicine; Visit Provider Internal Medicine
DX: E11.9 Type 2 diabetes mellitus without complications (principal); I10 Essential (primary) hypertension; M1A.9XX0 Chronic gout, unspecified, without tophus (tophi)
CPT/HCPCS: 36415; 80053; 80061; 83036; 84550